=== PATIENT | female | born 1995 | race Caucasian/White ===

== ENCOUNTER 2017-08-26 04:24 | Emergency (ER) | payer OTHER ==
--- NOTE | 2017-08-26 05:48 | EDPHY ---
H & P Stated Complaint: lower abdominal pain, bloody stool Time Seen by Provider: 08/26/17 04:40 HPI/ROS: HPI The patient presents with bloody diarrhea which occurred just prior to arrival. She had several episodes of loose stool which then became bloody with bright red blood. This is now mostly subsided. She does have crampy lower abdominal pain. She does not have a fever or vomiting. She does not have lightheadedness or dizziness. She does not have any recent travel, sick contacts, recent camping.. REVIEW OF SYSTEMS Constitutional: No fever, no chills. Eyes: No discharge. ENT: No sore throat. Cardiovascular: No chest pain, no palpitations. Respiratory: No cough, no shortness of breath. Gastrointestinal: No abdominal pain, no vomiting. Genitourinary: No hematuria. Musculoskeletal: No back pain. Skin: No rashes. Neurological: No headache. PMHx: Healthy Soc Hx: College student PHYSICAL General Appearance: Alert, no distress Eyes: Pupils equal and round no pallor or injection ENT, Mouth: Mucous membranes moist Respiratory: There are no retractions, lungs are clear to auscultation Cardiovascular: Regular rate and rhythm Gastrointestinal: Abdomen is soft and non-tender, no masses, bowel sounds normal Neurological: A&O, moves all extremities Skin: Warm and dry, no rashes Musculoskeletal: Neck is supple non tender Extremities: symmetrical, full range of motion Psychiatric: Patient is oriented X 3, there is no agitation Source: Patient Exam Limitations: No limitations - Personal History LMP (Females 10-55): 8-14 Days Ago Current Tetanus/Diphtheria Vaccine: Yes Current Tetanus Diphtheria and Acellular Pertussis (TDAP): Yes - Medical/Surgical History Hx Asthma: No Hx Chronic Respiratory Disease: No Hx Diabetes: No Hx Cardiac Disease: No Hx Renal Disease: No Hx Cirrhosis: No Hx Alcoholism: No Hx HIV/AIDS: No Hx Splenectomy or Spleen Trauma: No Other PMH: denies - Social History Smoking Status: Never smoked Constitutional: Initial Vital Signs Temperature (C) 36.7 C 08/26/17 04:27 Heart Rate 83 08/26/17 04:27 Respiratory Rate 16 08/26/17 04:27 Blood Pressure 142/81 H 08/26/17 04:27 O2 Sat (%) 100 08/26/17 04:27 O2 Delivery Mode Room Air Allergies/Adverse Reactions: No Known Allergies Allergy (Unverified 08/26/17 04:26) Home Medications: Medication Instructions Recorded Lexapro 08/26/17 Synthroid 100 mcg (*) 08/26/17 Medical Decision Making Differential Diagnosis: This is a 21-year-old female who presents with bloody diarrhea for the last hour or so, now subsided. On exam, she is well-appearing, has normal vital signs, abdominal exam is benign. She has no prior history of similar presentation in no family history of IBD. We have discussed evaluation with stool PCR, however given 1 day of symptoms I do not think it is indicated at this time. She is in agreement with this. [facility] with [facility] if her diarrhea continues. I will treat her with Imodium here. I will refer her to Gastroenterology for any ongoing symptoms. Differential diagnosis includes gastroenteritis, colitis, less likely inflammatory bowel disease. - Data Points Medications Given: Discontinued Medications Loperamide HCl ( Imodium) 2 mg PO EDNOW ONE Stop: 08/26/17 06:02 Last Admin: 08/26/17 06:03 Dose: 2 mg Departure - Departure Disposition: Home, Routine, Self-Care Clinical Impression: Bloody diarrhea Condition: Good Instructions: Loperamide (By mouth), Acute Diarrhea (ED), Nutrition Tips for Relief of Diarrhea (ED) Additional Instructions: Please take loperamide 2 mg after each loose stool not to exceed more than 8 tabs in 1 day. Please make sure to drink plenty of fluids. If you continue to have diarrhea on Wednesday, I would like for you to follow up with [facility]. You can follow up with the statistician theoretical that I have listed below as well if you have any ongoing symptoms. Referrals: [facility] ,. [Clinic] - As per Instructions Parker Gil MD [Medical Doctor] - As per Instructions Stand Alone Forms: School Excuse
[2017-08-26] MEDS ORDERED: LOPERAMIDE HCL 2 MG CAP PO ONE (06:01)
[2017-08-26 06:07] VITALS: BP 124/81; PULSE 68; RESP 18; TEMP 98.2; O2SAT 98
== END 2017-08-26 06:07 | disposition home or self-care (01) ==
DX: R19.7 Diarrhea, unspecified (principal)